=== PATIENT | female | born 1985 | race Caucasian/White ===

== ENCOUNTER 2017-07-25 10:25 | Outpatient (CLI) | payer MEDICAID ==
[2017-07-25 10:53] LABS: Glucose,Whole Blood 86 mg/dL (75-99)
[2017-07-25 11:15] VITALS: BP 129/78; PULSE 80; RESP 16; TEMP 98.3
--- NOTE | 2017-07-27 08:10 | P.MSEPDOC ---
Presenting Problems - Arrival Data Date of Arrival on Unit: 07/25/17 Time of Arrival on Unit: 10:20 Mode of Transport: Ambulatory - Complaint OB-Reason for Admission/Chief Complaint: Acute Nausea/Vomiting, Observation/ Evaluation Comment: Pt reports to triage c/o backpain that has made it difficult to stand for long periods, rating 4/10, describes as achy/constant, headache x 3 hours, 6 /10, describes as a "tension headache" and took tylenol 20 minutes ago. Also c/ o nausea, exhaustion and floaters that have been present for the duration of the . Medical History - Information : 2 Para: 0 Term: 0 : 0 Abortions: Spontaneous or Elective: 1 Number of Living Children: 0 - Gestational Age Gestational Age by MIKE (wks/days): 24 Weeks and 3 Days Review of Systems - Review of Systems Constitutional: No problems Breast: No problems ENT: No problems Cardiovascular: No problems Respiratory: No problems Gastrointestinal: No problems Genitourinary: No problems Musculoskeletal: No problems Neurological: No problems Skin: No problems Vital Signs - Temperature Temperature: 98.3 F Temperature Source: Oral - Pulse Right Brachial Pulse Rate: 80 Pulse Assessment Method: Automatic Cuff - Respirations Respiratory Rate: 16 Oxygen Delivery Method: Room Air O2 Sat by Pulse Oximetry: 98 - Blood Pressure Right Arm Sitting Blood Pressure: 129/78 Blood Pressure Mean: 95 Blood Pressure Source: Automatic Cuff Medical Screen Scoring (Pre) - Cervical Exam Dilation: Exam Deferred Effacement: Exam Deferred Membranes: Intact - Uterine Contractions Frequency: N/A Duration: N/A Intensity: N/A - Maternal Vital Signs Maternal Temperature: N/A Maternal Blood Pressure: N/A Signs of Preeclampsia: N/A Maternal Respirations: N/A - Maternal Trauma Maternal Trauma: N/A - Assessment Baseline FHR: 135 Heart Rate - NICHD Category: Category I (Normal) = 0 NST: Reactive Position: N/A Station: N/A - Total Score Total Score (Pre): 0 - Level of Risk Level of Risk: N/A Physician Notification (Pre) - Physician Notified Physician Notified Date: 07/25/17 Physician Notified Time: 10:50 Physician/Practitioner Notifed:: Anupama Spoke With: Anupama New Order Received: Yes Physician Notification (Post) - Notification Comment Comment: Mary Beth snow\\Dr. Altman, advsd , 24 06/07, reviewed complaints, pts accucheck 86, has only had a banana today. States to d/c home, advsd pt to purchase belly band, eat every few hours and include protein. To call for appt next week. Disposition - Disposition OB Disposition: Discharge to home Discharge Date: 07/25/17 Discharge Time: 11:00 I agree with the RN Medical Screening Exam: Yes Risk & Benefit of care provided described in d/c instruction: Yes Diagnosis: HEADACHE
== END 2017-07-25 11:00 | disposition home or self-care (01) ==
LOC: FBPOP 10:25
PROVIDERS: ATTEND Obstetrics & Gynecology Obstetrics
DX: O99.89 Other specified diseases and conditions complicating pregnancy, childbirth and the puerperium (principal); R51 Headache; Z3A.24 24 weeks gestation of pregnancy
CPT/HCPCS: 99213

== ENCOUNTER 2017-09-06 08:15 | Outpatient (CLI) | payer MEDICAID ==
[2017-09-06 09:14] VITALS: PULSE 117; RESP 16; TEMP 98.3
--- NOTE | 2017-10-08 08:32 | P.MSEPDOC ---
Presenting Problems - Arrival Data Date of Arrival on Unit: 09/06/17 Time of Arrival on Unit: 08:15 Mode of Transport: Ambulatory - Complaint OB-Reason for Admission/Chief Complaint: Decreased Movement Comment: pt states decreased movement for the past 2-3 days Medical History - Information : 2 Para: 0 Term: 0 : 0 Abortions: Spontaneous or Elective: 1 Number of Living Children: 0 - Gestational Age Gestational Age by MIKE (wks/days): 30 Weeks and 4 Days Review of Systems - Review of Systems Constitutional: No problems Breast: No problems ENT: No problems Cardiovascular: No problems Respiratory: No problems Gastrointestinal: No problems Genitourinary: No problems Musculoskeletal: No problems Neurological: No problems Skin: No problems Vital Signs - Temperature Temperature: 98.3 F Temperature Source: Oral - Pulse Right Brachial Pulse Rate: 117 Pulse Assessment Method: Automatic Cuff - Respirations Respiratory Rate: 16 Oxygen Delivery Method: Room Air O2 Sat by Pulse Oximetry: 98 Medical Screen Scoring (Pre) - Uterine Contractions Frequency: N/A Duration: N/A Intensity: N/A - Maternal Vital Signs Maternal Temperature: N/A Signs of Preeclampsia: N/A Maternal Respirations: N/A - Pain Assessment Pain Scale Used: Numeric (1 - 10) Pain Intensity: 0 Pain Management Goal: 0 Pain Behavior: None Exhibited - Maternal Trauma Maternal Trauma: N/A - Assessment Baseline FHR: 125 Heart Rate - NICHD Category: Category I (Normal) = 0 NST: Reactive - Total Score Total Score (Pre): 0 - Level of Risk Level of Risk: Low (0-5) Physician Notification (Pre) - Physician Notified Physician Notified Date: 09/06/17 Physician Notified Time: 08:56 Physician/Practitioner Notifed:: Anupama Spoke With: Anupama New Order Received: Yes - Notification Comment Comment: pt may be discharged home Disposition - Disposition OB Disposition: Discharge to home Discharge Date: 09/06/17 Discharge Time: 09:03 I agree with the RN Medical Screening Exam: Yes Risk & Benefit of care provided described in d/c instruction: Yes Diagnosis: DECREASED MOVEMENTS, THIRD TRIMESTER, FETUS 1
== END 2017-09-06 09:03 | disposition home or self-care (01) ==
LOC: FBPOP 08:15
PROVIDERS: ATTEND Obstetrics & Gynecology Obstetrics
DX: O36.8130 Decreased fetal movements, third trimester, not applicable or unspecified (principal); Z3A.30 30 weeks gestation of pregnancy
CPT/HCPCS: 59025; 99213

== ENCOUNTER 2017-11-01 15:57 | Outpatient (CLI) | payer MEDICAID ==
[2017-11-01 17:06] VITALS: BP 134/86; PULSE 109; RESP 18; TEMP 97.2
--- NOTE | 2017-12-30 09:27 | P.MSEPDOC ---
Presenting Problems - Arrival Data Date of Arrival on Unit: 11/01/17 Time of Arrival on Unit: 15:57 Mode of Transport: Ambulatory Vital Signs - Temperature Temperature: 97.2 F Temperature Source: Temporal Artery Scan - Pulse Right Brachial Pulse Rate: 109 Pulse Assessment Method: Auscultation - Respirations Respiratory Rate: 18 Oxygen Delivery Method: Room Air - Blood Pressure Right Arm Blood Pressure: 134/86 Blood Pressure Mean: 102 Blood Pressure Source: Automatic Cuff Medical Screen Scoring (Post) - Cervical Exam Dilation: Exam Deferred - Uterine Contractions Frequency: N/A Duration: N/A - Maternal Vital Signs Maternal Temperature: N/A Maternal Blood Pressure: N/A Signs of Preeclampsia: N/A Maternal Respirations: N/A - Pain Assessment Pain Scale Used: Numeric (1 - 10) Pain Intensity: 0 - Maternal Trauma Maternal Trauma: N/A - Assessment Heart Rate - NICHD Category: Category I (Normal) = 0 NST: Reactive - Total Score Total Score (Post): 0 - Post Treatment Level of Risk Post Treatment Level of Risk: Low (0-5) Physician Notification (Post) - Physician Notified Physician Notified Date: 11/01/17 Physician Notified Time: 16:30 Spoke With: Anupama New Order Received: Yes (discharge) - Notification Comment Comment: movement noted in triage, reactive. Disposition - Disposition OB Disposition: Triage, Discharge to home, Written follow up instructions reviewed Discharge Date: 11/01/17 Discharge Time: 16:45 I agree with the RN Medical Screening Exam: Yes Risk & Benefit of care provided described in d/c instruction: Yes Diagnosis: DECREASED MOVEMENTS, THIRD TRIMESTER, UNSP
== END 2017-11-01 16:45 | disposition home or self-care (01) ==
LOC: FBPOP 15:57
PROVIDERS: ATTEND Obstetrics & Gynecology Obstetrics
DX: O36.8130 Decreased fetal movements, third trimester, not applicable or unspecified (principal); Z3A.00 Weeks of gestation of pregnancy not specified
CPT/HCPCS: 59025; 99213

== ENCOUNTER 2017-11-06 18:22 | Inpatient (IN) | payer MEDICAID ==
[2017-11-06] MEDS ORDERED: LACTATED RINGERS 1,000 ML IV SCH (19:30)
[2017-11-06] MEDS: LACTATED RINGERS 1,000 ML IV SCH ×2 (19:30→20:45)
[2017-11-06] MEDS ORDERED: LIDOCAINE 1% (PF) 10 MG/ML (30 ML SDV) SQ PRN (20:32)
[2017-11-06] MEDS ORDERED: OXYTOCIN 10 UNIT/ML 1 ML VIAL IM PRN (20:32)
[2017-11-06] MEDS ORDERED: METHYLERGONOVINE 0.2 MG/ML 1 ML AMP IM PRN (20:32)
[2017-11-06] MEDS ORDERED: CARBOPROST TROMETHAMINE 250 MCG/ML 1 ML AMP IM PRN (20:32)
[2017-11-06] MEDS ORDERED: TERBUTALINE 1 MG/ML VIAL SQ PRN (20:32)
[2017-11-06 20:40] VITALS: BMI 37.8
[2017-11-06] MEDS ORDERED: OXYTOCIN 20 UNITS/1000 ML NS 1,000 ML IV SCH (20:45)
[2017-11-06 21:46] LABS: Basophils % (A) 0 %; Eosinophils # (A) 0.2 k/uL (0-0.7); Eosinophils % (A) 1 %; HCT 39.8 % (34.0-46.0); HGB 13.2 gm/dL (11.4-16.0); Lymphocytes # (A) 2.4 k/uL (1.0-4.8); Lymphocytes % (A) 16 %; MCH 29.3 pg (25.0-35.0); MCHC 33.2 g/dL (31.0-37.0); MCV 88.1 fL (80.0-100.0); Mean Platelet Volume 7.4; Monocytes # (A) 0.7 k/uL (0-1.0); Monocytes % (A) 5 %; Neutrophils # (A) 11.1 k/uL (1.3-7.7); Neutrophils % (A) 76 %; Platelet Count 246 k/uL (150-450); RBC 4.51 m/uL (3.80-5.40); RDW 13.4 % (11.5-15.5); WBC 14.7 k/uL (3.8-10.6)
[2017-11-07] MEDS: LACTATED RINGERS 1,000 ML IV SCH ×5 (04:15→17:48)
[2017-11-07] MEDS ORDERED: PENICILLIN G POTASSIUM 5,000,000 UNIT in DEXTROSE 5% IN WATER 100 ML IVPB STA ×2 (04:30)
--- NOTE | 2017-11-07 08:14 | P.HPOB ---
History of Present Illness H&P Date: 11/07/17 Chief Complaint: Leakage of fluids This is a 32-year-old 2 para 0010 woman at 39-3/7 weeks who presented with possible rupture of membranes on 86 at 1830. She reports a large gush of clear fluid however on evaluation in labor and delivery triage she had negative amnio sure 2. She was irregularly paige and approximately 2 cm dilated. On monitoring although the strip was overall reassuring she did have a couple of episodes of variable and possible late appearing decelerations. She was therefore admitted for monitoring with probable induction of labor. This morning she reports feeling very well she did denies any further leakage of fluids. She has felt good movement. She is denies contractions. No vaginal bleeding. Laboratory data: Blood type O positive, antibody screen negative, rubella nonimmune, group B strep positive, HIV negative, hep Charity surface antigen negative, VDRL nonreactive, glucose tolerance testing within normal limits Review of Systems All systems: negative Past Medical History Past Medical History: No Reported History, Fibromyalgia Additional Past Medical History / Comment(s): ADHD, Polycystic ovarian disorder History of Any Multi-Drug Resistant Organisms: None Reported Past Surgical History: No Surgical Hx Reported Past Anesthesia/Blood Transfusion Reactions: No Reported Reaction Past Psychological History: ADD/ADHD, Anxiety, Bipolar, PTSD Smoking Status: Former smoker Past Alcohol Use History: Occasional Additional Past Alcohol Use History / Comment(s): patient is currently a smoker and uses marijuana on a regular basis at least 3 times per week smoking a bowl per day. She also drinks alcohol heavily at at least a half a pint of vodka at least 4 times per week. She denies using other street drugs. Past Drug Use History: Marijuana - Past Family History Father Family Medical History: Diabetes Mellitus, Hypertension Additional Family Medical History / Comment(s): father is alive at age 54 and has history of celiac, diabetes, hypertension, bipolar. Mother Additional Family Medical History / Comment(s): mother is alive at age 46 and has history of anxiety, depression, obesity, hormone disorder Sister(s) Family Medical History: No Reported History Additional Family Medical History / Comment(s): patient states that she has 3 sisters are healthy and one brother with diabetes. Medications and Allergies Home Medications Medication Instructions Recorded Confirmed Type Lisdexamfetamine Dimesylate 1 cap PO DAILY 07/21/17 11/01/17 History [Vyvanse] Pnv No.95/Ferrous Fum/Folic AC 1 tab PO DAILY 07/21/17 11/01/17 History [ Multivitamin Tablet] L.acidoph,Paracasei, B.lactis 1 tab PO DAILY 09/06/17 11/01/17 History [Probiotic] Magnesium 1 tab PO DAILY 09/06/17 11/01/17 History Allergies Allergy/AdvReac Type Severity Reaction Status Date / Time No Known Allergies Allergy Verified 11/01/17 16:50 Exam Vital Signs Temp Pulse Resp BP 11/06/17 20:32 98.2 F 95 16 108/69 11/06/17 20:20 98.2 F 95 16 108/69 Intake and Output 11/06/17 11/07/17 11/07/17 22:59 06:59 14:59 Other: # Voids 3 Weight 87.997 kg Targeted physical exam is performed. This is a pleasant visibly gravid female in no obvious distress. On pelvic examination the cervix is 3 cm dilated, 50% effaced, posterior and the vertex is in the -2 station. I'm unable to rupture membranes secondary to maternal body habitus and discomfort and posterior position of the cervix. status at this time is currently reassuring with good variability and accelerations and no decelerations. She is irregularly paige with Pitocin. Results Result Diagrams: 11/06/17 21:31 Abnormal Lab Results - Last 24 Hours (Table) 11/06/17 Range/Units 21:31 WBC 14.7 H (3.8-10.6) k/uL Neutrophils # 11.1 H (1.3-7.7) k/uL Assessment and Plan (1) 39 weeks gestation of Current Visit: Yes Status: Acute Code(s): Z3A.39 - 39 WEEKS GESTATION OF SNOMED Code(s): 84173502 (2) GBS (group B Streptococcus carrier), +RV culture, currently Current Visit: Yes Status: Acute Code(s): O99.820 - STREPTOCOCCUS B CARRIER STATE COMPLICATING SNOMED Code(s): 7075530641489 (3) Rubella non-immune status, antepartum Current Visit: Yes Status: Acute Code(s): O99.89 - OTH DISEASES AND CONDITIONS COMPL PREG/CHLDBRTH; Z28.3 - UNDERIMMUNIZATION STATUS SNOMED Code(s ): 702434634 Plan: This is a 32-year-old 2 para 0010 woman admitted at 39-4/7 weeks gestation secondary to concerns for status which now is quite reassuring. We will proceed with elective induction of labor. Group B strep prophylactic antibiotics have been initiated. Analgesia upon request.
[2017-11-07] MEDS ORDERED: BUTORPHANOL 1 MG/ML 1 ML VIAL IV PRN (08:15)
[2017-11-07] MEDS ORDERED: ACETAMINOPHEN TAB 325 MG TAB PO STA (08:15)
[2017-11-07] MEDS: PENICILLIN G POTASSIUM 2,500,000 UNIT in DEXTROSE 5% IN WATER 100 ML IVPB SCH ×8 (09:30→22:57)
[2017-11-07] MEDS ORDERED: ROPIVACAINE 100 MG, fentaNYL (PF) 200 MCG in SODIUM CHLORIDE 0.9% 76 ML EPIDURAL ONE (11:23)
[2017-11-07 11:37] LABS: Amphetamine Screen,Urine Not Detected (NotDetected); Barbiturate Screen,Urine Not Detected (NotDetected); Benzodiazepines Screen,Urine Not Detected (NotDetected); Cocaine Screen,Urine Not Detected (NotDetected); Methadone Screen, Urine Not Detected (NotDetected); Opiate Screen,Urine Not Detected (NotDetected); Oxycodone Screen, Urine Not Detected (NotDetected); Phencyclidine Screen,Urine Not Detected (NotDetected); Tricyclic Antidepressant,Urine Not Detected (NotDetected); Urn Cannabinoid Scrn Detected (NotDetected)
[2017-11-07] MEDS ORDERED: CITRIC ACID-SODIUM CITRATE 15 ML CUP PO ONE (21:01)
[2017-11-07] MEDS ORDERED: ONDANSETRON 4 MG/2 ML VIAL ONE (21:08)
[2017-11-07] MEDS ORDERED: MORPHINE SULFATE (PF) 0.3 MG/0.3 ML SYR ONE (21:08)
[2017-11-07] MEDS ORDERED: OXYTOCIN 10 UNIT/ML 1 ML VIAL ONE (21:08)
[2017-11-07] MEDS ORDERED: PROPOFOL 10 MG/ML 20 ML VIAL IV ONE (21:08)
[2017-11-07] MEDS ORDERED: LANOLIN CREAM 5 GM TUBE TOPICAL PRN (22:04)
[2017-11-07] MEDS ORDERED: ACETAMINOPHEN TAB 325 MG TAB PO PRN (22:04)
[2017-11-07] MEDS ORDERED: NALOXONE 0.4 MG/ML 1 ML VIAL IV PRN (22:04)
[2017-11-07] MEDS ORDERED: ZOLPIDEM 5 MG TAB PO PRN (22:04)
[2017-11-07] MEDS ORDERED: KETOROLAC 30 MG/ML 1 ML VIAL IVP PRN (22:04)
[2017-11-07] MEDS ORDERED: ONDANSETRON 4 MG/2 ML VIAL IVP PRN (22:04)
[2017-11-07] MEDS ORDERED: diphenhydrAMINE 25 MG CAP PO PRN (22:04)
[2017-11-07] MEDS ORDERED: diphenhydrAMINE 50 MG/ML 1 ML VIAL IVP PRN ×2 (22:04)
[2017-11-07] MEDS ORDERED: diphenhydrAMINE 50 MG CAP PO PRN (22:04)
[2017-11-07] MEDS ORDERED: METOCLOPRAMIDE 5 MG/ML 2 ML VIAL IVP PRN (22:04)
[2017-11-07] MEDS ORDERED: SIMETHICONE 80 MG CHEWABLE PO PRN (22:04)
--- NOTE | 2017-11-07 22:13 | P.OP ---
Date of Procedure: 11/07/17 Preoperative Diagnosis: #1. 39-3/7 weeks intrauterine #2. Rubella nonimmune #3. Group B strep colonization #4. Arrest of descent Postoperative Diagnosis: Same plus #5. Fibroid uterus Procedure(s) Performed: #1. Primary low-transverse section Anesthesia: epidural Surgeon: Rj Castaneda Batch Mixer #1: Dorie Lindsey Estimated Blood Loss (ml): 500 IV fluids (ml): 1,000 Urine output (ml): 200 Pathology: none sent Condition: stable Disposition: floor Operative Findings: Preoperatively, the patient had made very slow progress through the latter stages of the active phase of labor but ultimately reached complete dilation. She pushed over the course of approximately 45 minutes to an hour with no descent of the head below approximately 0 station. There was a significant amount At present and the patient was felt to have a contracted pelvic shape with a very narrow arch. As result, she was taken the operating room where she was delivered of a viable 8 lbs. 5 oz. baby boy with Apgars of 8 at 1 minute and 9 at 5 minutes delivered in the right occiput transverse position. The placenta was delivered manually, intact, and grossly normal with a grossly normal three-vessel cord. Uterus, tubes, and ovaries were entirely normal with the only exception being several small 1-2 cm subserosal fibroids particulate in the posterior aspect of the fundus. Description of Procedure: The patient was prepped and draped in usual fashion after epidural anesthesia was bolused by the anesthesiologist. A Pfannenstiel incision was made and extended into the abdominal cavity without difficulty. The bladder peritoneum was elevated, incised, and reflected distally. A 2 cm incision was made in the transverse plane of the lower uterine segment to enter the uterus at which time clear fluid was noted again. The incision was extended in both directions using the bandage scissors. The head was noted to be deep in the pelvis and was elevated up and out of the incision where the nose and mouth were thoroughly suctioned, delivered in the right occiput transverse position. There was a nuchal cord 1 reduced after delivery of the head. The remainder of the was delivered onto the field where the cord was doubly clamped, cut, and the infant passed for resuscitative measures with weight and Apgars as noted above. A segment of cord was then doubly clamped, cut, and set aside should cord gases become necessary. The placenta was delivered manually and intact as above. The uterus was exteriorized and the interior cavity of uterus swept of any remaining placental or membranous fragments. The margins of the incision were grasped with Madison clamps and the incision closed in 2 layers. The first layer was a running locking stitch of 0 chromic catgut followed by a running imbricating layer of 0 chromic catgut. There was one small laceration in the central portion of the incision which was closed with the initial closure. There was then noted to be some bleeding both in the central portion of the incision and in the left angle of the incision which was made hemostatic with interrupted [id number] stitches of 0 chromic catgut. The posterior cul-de-sac was suctioned with a guard and the uterine and ovarian findings are as noted above with several small fibroids found. The uterus was replaced within the abdominal cavity and the gutters swept of any remaining blood fluid or clot. The incision was reexamined and any small points of bleeding made hemostatic with the Bovie. The [id number]-bz-[id number] stitches had manage the remainder of the larger portions of bleeding. Once hemostasis was assured, the parietal peritoneum was loosely reapproximated and layer of muscles examined and found to be hemostatic. The fascia was closed with 2 running stitches of 0 Vicryl proceeding from the lateral margins to the midpoint. The subcutaneous tissues were irrigated, made hemostatic with the Bovie, and reapproximated with a running stitch of 30 plain catgut. The skin was reapproximated with a running subcuticular stitch of 4-0 Vicryl from margin to margin followed by half-inch Steri-Strips placed with Mastisol. Estimated blood loss for the case was approximate 500 mL. There were no complications. All sponge, instrument, and needle counts were correct. The patient tolerated the procedure well and proceeded to the recovery room in stable condition. Both mother and infant are resting comfortably in recovery.
[2017-11-07] MEDS ORDERED: OXYTOCIN 20 UNITS/1000 ML NS 1,000 ML IV SCH (22:15)
[2017-11-07] MEDS ORDERED: LACTATED RINGERS 1,000 ML IV SCH (22:15)
[2017-11-08 07:06] LABS: Basophils % (A) 0 %; Eosinophils # (A) 0.1 k/uL (0-0.7); Eosinophils % (A) 1 %; HCT 36.2 % (34.0-46.0); Lymphocytes # (A) 1.9 k/uL (1.0-4.8); Lymphocytes % (A) 10 %; MCH 28.9 pg (25.0-35.0); MCHC 33.2 g/dL (31.0-37.0); MCV 87.2 fL (80.0-100.0); Mean Platelet Volume 8.2; Monocytes # (A) 0.6 k/uL (0-1.0); Monocytes % (A) 4 %; Neutrophils # (A) 15.5 k/uL (1.3-7.7); Neutrophils % (A) 85 %; Platelet Count 242 k/uL (150-450); RBC 4.15 m/uL (3.80-5.40); RDW 13.3 % (11.5-15.5); WBC 18.2 k/uL (3.8-10.6)
--- NOTE | 2017-11-08 07:15 | P.PN ---
Subjective Progress Note Date: 11/08/17 Slept well, pain well controlled. Positive flatus. No complaints Objective - Vital Signs Vital signs: Vital Signs Temp 98 F 11/08/17 03:59 Pulse 74 11/08/17 03:59 Resp 16 11/08/17 03:59 BP 111/73 11/08/17 03:59 Pulse Ox 98 11/07/17 23:05 Intake & Output 11/07/17 11/08/17 11/08/17 18:59 06:59 18:59 Output Total 3500 Balance -3500 Output: Urine 3500 Other: Voiding Method Indwelling Catheter # Voids 3 - Constitutional General appearance: Present: average body habitus, cooperative - EENT Eyes: Present: PERRLA ENT: Present: hearing grossly normal - Respiratory Respiratory: bilateral: CTA - Cardiovascular Rhythm: regular - Gastrointestinal General gastrointestinal: Present: normal bowel sounds - Genitourinary Genitourinary Comment(s): Incision clean and dry, intact._Firm, midline, symmetric, 18 week size - Integumentary Integumentary: Present: normal - Neurologic Neurologic: Present: CNII-XII intact - Musculoskeletal Musculoskeletal: Present: gait normal, strength equal bilaterally - Psychiatric Psychiatric: Present: A&O x's 3, intact judgment & insight - Labs CBC & Chem 7: 11/08/17 06:50 Labs: Abnormal Lab Results - Last 24 Hours (Table) 11/07/17 11/08/17 Range/Units 09:00 06:50 WBC 18.2 H (3.8-10.6) k/uL Neutrophils # 15.5 H (1.3-7.7) k/uL U Marijuana (THC) Screen Detected H (NotDetected) Assessment and Plan Assessment: Doing well postoperative day #1. Declining circumcision. Plan: Advance diet and activity. Continue postoperative care. Possible discharge home tomorrow. Time with Patient: Less than 30
[2017-11-08] MEDS: SENNOSIDES-DOCUSATE SODIUM 1 EACH TAB PO SCH ×2 (08:00→20:15)
[2017-11-08] MEDS: HYDROcodone/APAP 5-325MG 1 EACH TAB PO PRN (08:00)
[2017-11-08] MEDS: IBUPROFEN 600 MG TAB PO PRN ×3 (12:38→23:34)
[2017-11-08] MEDS: HYDROcodone/APAP 7.5-325MG 1 EACH TAB PO PRN ×2 (16:00→21:04)
[2017-11-09] MEDS: HYDROcodone/APAP 7.5-325MG 1 EACH TAB PO PRN ×2 (03:03→22:30)
--- NOTE | 2017-11-09 04:55 | P.PN ---
Subjective Progress Note Date: 11/09/17 Slept well. Pain reasonably well controlled. Moderate lochia rubra. Objective - Vital Signs Vital signs: Vital Signs Temp 98.5 F 11/09/17 00:00 Pulse 86 11/09/17 00:00 Resp 16 11/09/17 00:00 BP 117/73 11/09/17 00:00 Pulse Ox 98 11/09/17 00:00 Intake & Output 11/08/17 11/08/17 11/09/17 06:59 18:59 06:59 Output Total 3500 Balance -3500 Output: Urine 3500 Other: Voiding Method Indwelling Catheter # Voids 1 1 - Constitutional General appearance: Present: average body habitus, cooperative - EENT Eyes: Present: PERRLA - Respiratory Respiratory: bilateral: CTA - Cardiovascular Rhythm: regular - Gastrointestinal General gastrointestinal: Present: normal bowel sounds - Integumentary Integumentary: Present: normal - Neurologic Neurologic: Present: CNII-XII intact - Musculoskeletal Musculoskeletal: Present: gait normal, strength equal bilaterally - Psychiatric Psychiatric: Present: A&O x's 3, appropriate affect, intact judgment & insight - Labs CBC & Chem 7: 11/08/17 06:50 Labs: Abnormal Lab Results - Last 24 Hours (Table) 11/08/17 Range/Units 06:50 WBC 18.2 H (3.8-10.6) k/uL Neutrophils # 15.5 H (1.3-7.7) k/uL Assessment and Plan Assessment: Doing well post operative day #2 Plan: Continue postoperative care. Likely discharge home tomorrow. Time with Patient: Less than 30
[2017-11-09] MEDS: IBUPROFEN 600 MG TAB PO PRN ×3 (06:28→17:32)
[2017-11-09] MEDS: SENNOSIDES-DOCUSATE SODIUM 1 EACH TAB PO SCH ×2 (08:51→22:31)
[2017-11-09] MEDS: HYDROcodone/APAP 5-325MG 1 EACH TAB PO PRN ×2 (08:55→15:39)
[2017-11-09 10:25] VITALS: RESP 18
[2017-11-10] MEDS: IBUPROFEN 600 MG TAB PO PRN ×3 (01:10→14:29)
[2017-11-10] MEDS: HYDROcodone/APAP 5-325MG 1 EACH TAB PO PRN ×2 (06:14→11:01)
--- NOTE | 2017-11-10 08:14 | P.DS ---
Providers Date of admission: 11/06/17 20:05 Expected date of discharge: 11/10/17 Attending physician: Yulisa Altman Primary care physician: Stated None Hospital Course: This is a 31-year-old white female 2 para 0010 EDC 11/11/2017 at 39-3/7 weeks' gestation. Patient presented with the history of spontaneous amniorrhexis. This was not the case, however occasional late variable decelerations were noted and monitoring heart rate. Decision was therefore made to observe the patient overnight. Her is remarkable for positive group B strep cultures, please see dictated history and physical for details. Artificial amniorrhexis was performed the following morning for clear fluid. Patient progressed through labor, had occasional late decelerations but overall excellent heart rate tracing. She reached the second stage of labor and pushed for approximate 1-1/2 hours with no descent. Decision was made to proceed with primary low transverse section. She went on to deliver a liveborn male with scores of 8 and 9 at one and 5 minutes respectively. There was a nuchal cord 1 that was reduced. weight 8 lbs. 5 oz. or 3780 g. She did well intraoperatively with an estimated blood loss of 500 mL's. Please see dictated operative note for details. Please note that penicillin G was received 4 doses. This morning the patient is doing well. She is voiding, ambulating and passing flatus without difficulty. Vital signs are stable and she is afebrile. Fundus is firm and in the midline, symmetric and 18 week size. [place] infant is doing well, she is declining option for circumcision. Breasts are not engorged. Pain is well-controlled with ibuprofen. Patient is therefore being discharged home today in good condition. She will follow-up in the office in 2 weeks. She will use [id number]-iwytdms ibuprofen products, 200 mg pills, 3 every 6 hours as needed. She will call with any fevers shakes or chills, foul smelling or copious lochia, with the passage of large blood clots, with any pain not alleviated by ibuprofen, or indeed with any concerns. [place] will follow-up with eye care professional as per recommendations. We have briefly discussed contraceptive options and she will discuss this further in the office with her primary care physician. Patient Condition at Discharge: Good Plan - Discharge Summary New Discharge Prescriptions: No Action Pnv No.95/Ferrous Fum/Folic AC [ Multivitamin Tablet] 1 tab PO DAILY Lisdexamfetamine Dimesylate [Vyvanse] 1 cap PO DAILY Magnesium 1 tab PO DAILY L.acidoph,Paracasei, B.lactis [Probiotic] 1 tab PO DAILY Discharge Medication List Lisdexamfetamine Dimesylate [Vyvanse] 1 cap PO DAILY 07/21/17 [History] Pnv No.95/Ferrous Fum/Folic AC [ Multivitamin Tablet] 1 tab PO DAILY [History] L.acidoph,Paracasei, B.lactis [Probiotic] 1 tab PO DAILY 09/06/17 [History] Magnesium 1 tab PO DAILY 09/06/17 [History] Follow up Appointment(s)/Referral(s): Yulisa Altman DO [Doctor of Osteopathic Medicine] - 2 Weeks Discharge Disposition: HOME SELF-CARE
[2017-11-10] MEDS: SENNOSIDES-DOCUSATE SODIUM 1 EACH TAB PO SCH (08:22)
[2017-11-10 09:00] VITALS: BP 123/78; PULSE 118; TEMP 97.5
== END 2017-11-10 15:30 | disposition home or self-care (01) | DRG 765 ==
LOC: FBPOP 18:22 → 4FBP 20:05
PROVIDERS: ADMIT Obstetrics & Gynecology; ATTEND Obstetrics & Gynecology Obstetrics
PROC: 3E033VJ Introduction of Other Hormone into Peripheral Vein, Percutaneous Approach (ICD-10-PCS; 2017-11-06)
PROC: 10907ZC Drainage of Amniotic Fluid, Therapeutic from Products of Conception, Via Natural or Artificial Opening (ICD-10-PCS; 2017-11-06)
PROC: 00HU33Z Insertion of Infusion Device into Spinal Canal, Percutaneous Approach (ICD-10-PCS; 2017-11-07)
PROC: 3E0R3BZ Introduction of Anesthetic Agent into Spinal Canal, Percutaneous Approach (ICD-10-PCS; 2017-11-07)
PROC: 10D00Z1 Extraction of Products of Conception, Low, Open Approach (ICD-10-PCS; principal; 2017-11-07 21:00)
DX: O62.1 Secondary uterine inertia (principal); O99.324 Drug use complicating childbirth; O69.81X0 Labor and delivery complicated by cord around neck, without compression, not applicable or unspecified; O76 Abnormality in fetal heart rate and rhythm complicating labor and delivery; O34.13 Maternal care for benign tumor of corpus uteri, third trimester; O99.824 Streptococcus B carrier state complicating childbirth; O99.344 Other mental disorders complicating childbirth; Z37.0 Single live birth; Z3A.39 39 weeks gestation of pregnancy; Z28.3 Underimmunization status; D25.2 Subserosal leiomyoma of uterus; M79.7 Fibromyalgia; F90.9 Attention-deficit hyperactivity disorder, unspecified type; E28.2 Polycystic ovarian syndrome; F43.10 Post-traumatic stress disorder, unspecified; Z79.899 Other long term (current) drug therapy; F12.90 Cannabis use, unspecified, uncomplicated; Z83.3 Family history of diabetes mellitus; Z82.49 Family history of ischemic heart disease and other diseases of the circulatory system; Z81.8 Family history of other mental and behavioral disorders; Z83.79 Family history of other diseases of the digestive system; Z83.49 Family history of other endocrine, nutritional and metabolic diseases
CPT/HCPCS: 80306; 85025